=== PATIENT | male | born 1975 | race Hispanic/Latino ===

== ENCOUNTER 2021-10-04 10:56 | Emergency (ER) | payer SELFPAY ==
[2021-10-04 11:40] LABS: Absolute Lymphocytes (CBC) 1.3 K/uL (0.7-4.9); Hematocrit 39.4 % (39.6-49.0); Lymphocytes % 20.6 % (15.3-44.8); MPV 7.9 fL (7.6-11.3); RBC Red Blood Cell Count 4.24 M/uL (4.33-5.43)
[2021-10-04] MEDS ORDERED: MORPHINE 4 MG/ML SYR ONE (11:43)
[2021-10-04 11:59] LABS: Potassium 4.1 mmol/L (3.5-5.1); Troponin High Sensitivity 4.1 pg/mL (<58.9)
--- NOTE | 2021-10-04 12:35 | RAD REPORT ---
EXAM DESCRIPTION: CT - Angio Aorta For Dissection - 10/04/2021 12:26 pm CLINICAL HISTORY: . Chest and abd pain COMPARISON: None TECHNIQUE: Computed tomography angiography of the chest, abdomen pelvis were obtained. 100 cc Isovue 370 was administered intravenously. Coronal and sagittal reconstruction were performed. MIP 3D reconstruction was performed All CT scans are performed using dose optimization technique as appropriate and may include automated exposure control or mA/KV adjustment according to patient size. FINDINGS: An aortic dissection is not seen. An aortic aneurysm is not displayed. The celiac, SMA and ELSIE are patent . 2 main left renal arteries. A lung consolidation is not present. A pericardial effusion is not seen. A pleural effusion is not no zak. Fatty liver. Small gallstones Spleen, pancreas,adrenals and kidneys demonstrate no significant abnormality. There no evidence diverticulitis. Normal appendix IMPRESSION: Negative for an aortic dissection. Cholelithiasis
--- NOTE | 2021-10-04 12:36 | RAD REPORT ---
EXAM DESCRIPTION: [facility] Single View10/04/2021 11:38 am CLINICAL HISTORY: Chest pain COMPARISON: none FINDINGS: The lungs appear clear of acute infiltrate. The heart is normal size IMPRESSION: No acute abnormalities displayed
--- NOTE | 2021-10-04 13:21 | EDPHYS ---
Physician Documentation [facility] Name: Jona Rose Age: 45 yrs Sex: Male : 1975 Arrival Date: 10/04/2021 Time: 10:59 Bed 6 Private MD: ED Physician Edwin Oliver HPI: 10/04 11:16 This 45 yrs old Male presents to ER via Ambulatory with complaints of Chest rn Pain, Arm Pain. 11:17 The patient or guardian reports chest pain that is located primarily in the substernal rn area. Onset: last night. The pain radiates to the left arm, neck, back. Associated signs and symptoms: Pertinent negatives: cough, diaphoresis, lower extremity swelling, shortness of breath, syncope, vomiting. The chest pain is described as a heaviness, a pressure. Duration: The patient or guardian reports multiple episodes, that are intermittent. Modifying factors: The symptoms are alleviated by nothing. the symptoms are aggravated by nothing. Severity of pain: At its worst the pain was moderate in the emergency department the pain is unchanged. The patient has not experienced similar symptoms in the past. The patient has not recently seen a physician. Historical: - Allergies: 11:05 No Known Allergies; ss - PMHx: 11:05 Diabetes mellitus; Hypertensive disorder; ss - PSHx: 11:05 None; ss - Immunization history:: Adult Immunizations not up to date. - Social history:: Smoking status: Patient reports the use of cigarette tobacco products, smokes one pack cigarettes per day. - Family history:: not pertinent. - Hospitalizations: : No recent hospitalization is reported. ROS: 11:17 Constitutional: Negative for fever, chills, and weight loss, Eyes: Negative for injury, rn pain, redness, and discharge, Neck: Negative for injury, pain, and swelling, Cardiovascular: Negative for edema, Respiratory: Negative for shortness of breath, cough, wheezing, and pleuritic chest pain, Abdomen/GI: Negative for abdominal pain, nausea, vomiting, diarrhea, and constipation, Back: Negative for injury and pain, MS/Extremity: Negative for injury and deformity, Skin: Negative for injury, rash, and discoloration, Neuro: Negative for headache, weakness, numbness, tingling, and seizure. Exam: 11:17 Constitutional: This is a well developed, well nourished patient who is awake, alert, rn and in no acute distress. Head/Face: Normocephalic, atraumatic. Eyes: Periorbital areas with no swelling, redness, or edema. Cardiovascular: Regular rate and rhythm. No pulse deficits. Respiratory: No increased work of breathing, no retractions or nasal flaring. Abdomen/GI: Soft, non-tender Skin: Warm, dry MS/ Extremity: Pulses equal, no cyanosis. Neurovascular intact. Full, normal range of motion. Equal circumference. Neuro: Awake and alert, GCS 15, oriented to person, place, time, and situation. Cranial nerves II-XII grossly intact. Motor strength 5/5 in all extremities. Sensory grossly intact. Cerebellar exam normal. Vital Signs: 11:04 BP 158 / 100; Pulse 77; Resp 16; Temp 98.2(TE); Pulse Ox 100% on R/A; Weight 108.86 kg; ss Height 6 ft. 0 in. (182.88 cm); Pain 7/10; 11:47 BP 143 / 97; Pulse 67; Resp 16 S; Pulse Ox 98% on R/A; aa5 12:30 BP 146 / 96; Pulse 66; Resp 18 S; Pulse Ox 98% on R/A; aa5 13:50 BP 148 / 96; Pulse 89; Resp 16; Pulse Ox 100% on R/A; iw 11:04 Body Mass Index 32.55 (108.86 kg, 182.88 cm) ss MDM: 11:06 Patient medically screened. rn 13:20 Differential diagnosis: acute myocardial infarction, acute pericarditis, anxiety, rn coronary artery disease chest wall pain, cholecystitis, Cholelithiasis costochondritis, esophagitis, gastritis, pleurisy, pneumothorax, thoracic aortic disection. Data reviewed: vital signs, nurses notes, lab test result(s), EKG, radiologic studies, CT scan, plain films, and as a result, I will discharge patient. Counseling: I had a detailed discussion with the patient and/or guardian regarding: the historical points, exam findings, and any diagnostic results supporting the discharge/admit diagnosis, lab results, radiology results, the need for outpatient follow up, to return to the emergency department if symptoms worsen or persist or if there are any questions or concerns that arise at home. Response to treatment: the patient's symptoms have markedly improved after treatment, and as a result, I will discharge patient. Special discussion: Based on the patient's history, exam, and Dx evaluation, there is no indication for emergent intervention or inpatient Tx. It is understood by the patient/guardian that if the Sx's persist or worsen they need to return immediately for re-evaluation. I discussed with the patient/guardian in detail that at this point there is no indication for admission to the hospital. It is understood, however, that if the symptoms persist or worsen the patient needs to return immediately for re-evaluation. 10/04 11:13 Order name: Basic Metabolic Panel; Complete Time: 12:03 rn 10/04 11:13 Order name: CBC with Diff; Complete Time: 12: rn 10/04 11:13 Order name: NT PRO-BNP; Complete Time: 12: rn 10/04 11:13 Order name: Troponin HS; Complete Time: 12: rn 10/04 11:13 Order name: XRAY Chest (1 view); Complete Time: 12: rn 10/04 11:13 Order name: EKG; Complete Time: 11: rn 10/04 11:13 Order name: Cardiac monitoring; Complete Time: 11: rn 10/04 11:13 Order name: EKG - Nurse/Tech; Complete Time: rn 10/04 11:13 Order name: IV Saline Lock; Complete Time: : rn 10/04 11:13 Order name: Labs collected and sent; Complete Time: : rn 10/04 11:13 Order name: O2 Per Protocol; Complete Time: : rn 10/04 11:17 Order name: CT Aorta for Dissection; Complete Time: 12: rn 10/04 11:13 Order name: O2 Sat Monitoring; Complete Time: : rn Administered Medications: 11:50 Drug: morphine 4 mg Route: IVP; Infused Over: 4 mins; Site: right forearm; aa5 12:30 Follow up: Response: No adverse reaction; Pain is unchanged, physician notified aa5 Disposition Summary: 10/04/21 13:20 Discharge Ordered Location: Home rn Problem: new rn Symptoms: have improved rn Condition: Stable rn Diagnosis - Chest pain, unspecified rn Followup: rn - With: Private Physician - When: As needed - Reason: Recheck today's complaints, Re-evaluation by your physician Discharge Instructions: - Discharge Summary Sheet rn - Nonspecific Chest Pain, Adult rn - Pain Without a Known Cause rn Forms: - Medication Reconciliation Form rn - Thank You Letter rn - Antibiotic business services intern - Prescription Opioid Use rn Signatures: Dispatcher [employer] EDEdwin Viveros MD MD rn Calderon, Audri, RN RN aa5 Adriana De La Cruz RN RN ss Corrections: (The following items were deleted from the chart) 11:21 11:13 D-DIMER+[email or web address].BRZ ordered. EDAZ EDAZ
--- NOTE | 2021-10-04 13:21 | ER ---
Nurse's Notes [facility] Name: Jona Rose Age: 45 yrs Sex: Male : 1975 Arrival Date: 10/04/2021 Time: 10:59 Bed 6 Private MD: Diagnosis: Chest pain, unspecified Presentation: 10/04 11:04 Chief complaint: Patient states: Chest pain and L arm discomfort that began last night, ss is worse today. Coronavirus screen: Client denies travel out of the [place] in the last 14 days. Ebola Screen: Patient denies exposure to infectious person. Patient denies travel to an Ebola-affected area in the 21 days before illness onset. Initial Sepsis Screen: Does the patient meet any 2 criteria? No. Patient's initial sepsis screen is negative. Does the patient have a suspected source of infection? No. Patient's initial sepsis screen is negative. Risk Assessment: Do you want to hurt yourself or someone else? Patient reports no desire to harm self or others. Onset of symptoms was October 03, 2021. 11:04 Method Of Arrival: Ambulatory ss 11:04 Acuity: PATRICIA 3 ss Historical: - Allergies: 11:05 No Known Allergies; ss - PMHx: 11:05 Diabetes mellitus; Hypertensive disorder; ss - PSHx: 11:05 None; ss - Immunization history:: Adult Immunizations not up to date. - Social history:: Smoking status: Patient reports the use of cigarette tobacco products, smokes one pack cigarettes per day. - Family history:: not pertinent. - Hospitalizations: : No recent hospitalization is reported. Screenin:50 Abuse screen: Denies threats or abuse. Denies injuries from another. Nutritional iw screening: No deficits noted. Tuberculosis screening: No symptoms or risk factors identified. Fall Risk None identified. Assessment: 11:10 General: Appears uncomfortable, Behavior is calm, cooperative. Pain: Complains of pain aa5 in anterior aspect of left upper chest Pain does not radiate. Pain currently is 6 out of 10 on a pain scale. Quality of pain is described as pressure, Pain began 1 day ago. Is continuous. Neuro: Level of Consciousness is awake, alert, obeys commands, Oriented to person, place, time, situation. Cardiovascular: Heart tones S1 S2 present Rhythm is regular. Respiratory: Airway is patent Respiratory effort is even, unlabored, Respiratory pattern is regular, symmetrical. GI: Abdomen is round non-distended, Bowel sounds present X 4 quads. Abd is soft and non tender X 4 quads. Patient currently denies nausea, vomiting. : No signs and/or symptoms were reported regarding the genitourinary system. EENT: No signs and/or symptoms were reported regarding the EENT system. Derm: Skin is pink, warm \T\ dry. Musculoskeletal: Range of motion: intact in all extremities. 11:50 Reassessment: Patient is alert, oriented x 3, equal unlabored respirations, skin aa5 warm/dry/pink. 12:30 Reassessment: Patient is alert, oriented x 3, equal unlabored respirations, skin aa5 warm/dry/pink. Patient states symptoms have not improved. 13:48 Reassessment: Patient appears in no apparent distress at this time. Patient and/or iw family updated on plan of care and expected duration. Pain level reassessed. Patient is alert, oriented x 3, equal unlabored respirations, skin warm/dry/pink. Vital Signs: 11:04 BP 158 / 100; Pulse 77; Resp 16; Temp 98.2(TE); Pulse Ox 100% on R/A; Weight 108.86 kg; Height 6 ft. 0 in. (182.88 cm); Pain 7/10; 11:47 BP 143 / 97; Pulse 67; Resp 16 S; Pulse Ox 98% on R/A; aa5 12:30 BP 146 / 96; Pulse 66; Resp 18 S; Pulse Ox 98% on R/A; aa5 13:50 BP 148 / 96; Pulse 89; Resp 16; Pulse Ox 100% on R/A; iw 11:04 Body Mass Index 32.55 (108.86 kg, 182.88 cm) ED Course: 10:59 Patient arrived in ED. mr 11:05 Triage completed. ss 11:05 Arm band placed on right wrist. ss 11:06 Edwin Oliver MD is Attending Physician. rn 11:09 Millie Sanders, RENATA is Primary Nurse. aa5 11:10 Patient has correct armband on for positive identification. Placed in gown. Bed in low aa5 position. Call light in reach. Side rails up X2. Client placed on continuous cardiac and pulse oximetry monitoring. NIBP monitoring applied. 11:25 Initial lab(s) drawn, by me, sent to lab. Inserted saline lock: 20 gauge in right aa5 forearm, using aseptic technique. Blood collected. 11:40 XRAY Chest (1 view) In Process Unspecified. EDMS 12:28 CT Aorta for Dissection In Process Unspecified. EDMS 13:50 No provider procedures requiring assistance completed. IV discontinued, intact, iw bleeding controlled, No redness/swelling at site. Pressure dressing applied. Patient maintains SpO2 saturation greater than 95% on room air. Administered Medications: 11:50 Drug: morphine 4 mg Route: IVP; Infused Over: 4 mins; Site: right forearm; aa5 12:30 Follow up: Response: No adverse reaction; Pain is unchanged, physician notified aa5 Medication: 13:50 VIS not applicable for this client. aa5 Outcome: 13:20 Discharge ordered by . rn 13:50 Discharged to home ambulatory. iw 13:50 Condition: good 13:50 Discharge instructions given to patient, Instructed on discharge instructions, follow up and referral plans. Demonstrated understanding of instructions, follow-up care. 13:50 Patient left the ED. iw Signatures: Dispatcher [employer] [facility] Megan Robert Kelley Bro, RN RENATA iw Edwin Oliver MD MD rn Calderon, Audri, RN RN aa Adriana De La Cruz RN RN ss Corrections: (The following items were deleted from the chart) 15:40 13:48 Patient has correct armband on for positive identification. Placed in gown. Bed aa5 in low position. Call light in reach. Side rails up X2. aa5 15:40 13:48 Client placed on continuous cardiac and pulse oximetry monitoring. NIBP aa5 monitoring applied. aa5 15:42 11:10 Pain: Complains of pain in anterior aspect of left upper chest Pain does not aa5 radiate. Pain currently is 6 out of 10 on a pain scale. Quality of pain is described as pressure, Pain began 2-3 days ago. Is continuous, aa5
[2021-10-04 13:58] VITALS: TEMP 98.2; O2SAT 100
[2021-10-04 14:00] VITALS: BP 148/96
--- NOTE | 2021-10-07 17:38 | EKG ---
Test Date: 2021-10-04 Test Time: 11:16:26 Wrapper Caser: SOTO MEASUREMENT RESULTS: Intervals: Rate: 67 DE: 158 QRSD: 96 QT: 396 QTc: 418 [place]: P: 40 DE: 158 QRS: 59 T: -1 INTERPRETIVE STATEMENTS: Normal sinus rhythm Inferior infarct, age undetermined Cannot rule out Anterior infarct, age undetermined Abnormal ECG No previous ECG available for comparison Electronically Signed On 10-07-21 17:32:16 CDT by Bennett Reyes
== END 2021-10-04 13:50 | disposition home or self-care (01) ==
LOC: ER 10:56
DX: R07.9 Chest pain, unspecified (principal); E11.9 Type 2 diabetes mellitus without complications; I10 Essential (primary) hypertension; F17.210 Nicotine dependence, cigarettes, uncomplicated
CPT/HCPCS: 36415; 71045; 71275; 74175; 80048; 83880; 84484; 85025; 93005; 96374; 99284; Q9967